=== PATIENT | male | born 1965 | race Caucasian/White ===

== ENCOUNTER 2019-11-23 12:15 | Observation (INO) | payer OTHER, SELFPAY ==
[2019-11-23] VITALS (12 sets, daily range): BP systolic 169–222; BP diastolic 76–118; PULSE 68–103; RESP 15–18; TEMP 36.1–36.9; O2SAT 96–100
--- NOTE | ~2019-11-23 | XR_ITS ---
EXAMINATION: XR chest 2V 11/23/2019 12:45 INDICATION: Chest tightness. Hypertension. PROCEDURE: 2 view chest COMPARISON: No prior studies for comparison. FINDINGS: The lungs are clear. The cardiomediastinal silhouette is within normal limits. There are no pleural effusions. There is no pneumothorax suspected. IMPRESSION: 1: NO ACUTE CARDIOPULMONARY DISEASE. Reviewed, dictated and finalized at location A.
--- NOTE | ~2019-11-23 | CT_ITS ---
EXAMINATION: CTA chest PE protocol DATE: 11/23/2019 19:39 INDICATION: Shortness of breath, hypertension TECHNIQUE: Computed tomography angiography (CTA) of the chest was performed with 100 mL Omnipaque-350 intravenous contrast timed to evaluate the pulmonary arteries. Coronal maximum intensity projection 3D-reconstructions were created by the technologist. The dose-length product (DLP) was 1016.34 mGy-cm . Automated exposure control and iterative reconstruction technique were employed. COMPARISON: 11/08/2012 FINDINGS: The pulmonary arteries are well-opacified. No pulmonary embolism is identified. The lungs a re free of acute opacities. There is no pleural effusion or pneumothorax. No pathologically enlarged thoracic lymph nodes are identified. The heart size is normal. There are bridging osteophytes at mult iple levels in the spine, consistent with diffuse idiopathic skeletal hyperostosis (DISH). There is a 3 cm cyst of the left kidney. IMPRESSION: 1. No pulmonary embolism or acute cardiopulmonary abnormality. Reviewed, dictated and finalized at location A.
--- NOTE | ~2019-11-23 | US_ITS ---
EXAMINATION: US venous doppler [facility] DATE: 11/23/2019 14:56 INDICATION: Lower limb swelling TECHNIQUE: [place] scale images without and with compression and Doppler images of the bilateral lower e xtremity veins were obtained. COMPARISON: None. FINDINGS: The right common femoral vein, profunda femoral vein, femoral vein, popliteal vein, peroneal trunk, p osterior tibial veins, and greater saphenous vein are patent. There is thrombosis of the peroneal trunk and posterior tibial veins. The left common femoral vein, p rofunda femoral vein, femoral vein, popliteal vein, and greater saphenous vein are patent. IMPRESSION: 1. Thrombosis of the left peroneal and posterior tibial veins. These findings were discussed with Dr. Chauncey Lee MD in the Emergency Department at 1515 hours on 11/23/2019. Reviewed, dictated and finalized at location A. IMPRESSION: 1. Thrombosis of the left peroneal and posterior tibial veins. These findings w ere discussed with Dr. Chauncey Lee MD in the Emergency Department at 151 5 hours on 11/23/2019.
--- NOTE | 2019-11-23 12:16 | ECG_ITS ---
Measurements Intervals [place] Rate: 102 P: 47 [place]: 153 QRS: 12 QRSD: 85 T: 18 QT: 328 QTc: 429 Interpretive Statements SINUS TACHYCARDIA BORDERLINE ST-T WAVE ABNORMALITY- INFERIOR LEADS BASELINE WANDER- II, III, V2-V6 BORDERLINE ECG Electronically Signed On 11-23-2019 15:29:45 CDT by Bulmaro Fuentes D.O.
[2019-11-23] MEDS: ASPIRIN 81 MG CHEWABLE TABLET 324 MG PO (12:26)
--- NOTE | 2019-11-23 12:50 | ED.CHESTPAIN ---
HPI - Chest Pain General Chief Complaint: Chest Pain Stated Complaint: high blood pressure Time Seen by Provider: 11/23/19 12:39 Source: patient Mode of arrival: ambulatory Limitations: no limitations History of Present Illness HPI narrative: A 53 y/o male presents to the ED with c/o midsternal CP. Pt states that the CP started this afternoon and has been constant since. He has a PMHx of HTN and hyperlipidemia but has not taken his medication for the past 3 years. Today he notes that his blood pressure was 211/101, so he decided to come to the ED. The midsternal CP is aggravated when he eats. Pt reports SOB on exertion and BLE edema that is worse on the right. He does not currently have a PCP. Pt has no other complaints at this time. MD complaint: chest pain (midsternal) Pertinent past history: other (HTN, hyperlipidemia) Onset (ago): hour(s) (today) Timing of current episode: constant Pain location: other (midsternal) Exacerbating factors: eating Context: non compliance with medication Associated symptoms: dyspnea (on exertion) and other (BLE edema that is worse on the right) Related Data Home Medications Medication Instructions Recorded Confirmed No Home Medications 11/23/19 11/23/19 Allergies Allergy/AdvReac Type Severity Reaction Status Date / Time No Known Allergies Allergy Verified 11/23/19 12:24 Review of Systems Review of Systems: All systems reviewed & are unremarkable except as noted in HPI and below Cardiovascular: Cardiovascular: Reports chest pain (midsternal) and Reports leg edema (BLE that is worse on right) Respiratory: Respiratory: Reports dyspnea on exertion PMFSH Past Medical History Medical History (Updated 11/23/19 @ 16:31 by Chauncey Lee MD) History of blood transfusion HTN (hypertension) Hyperlipidemia Surgical History Surgical History (Updated 11/23/19 @ 12:53 by Linn Gutierrez) History of hernia repair History of tonsillectomy Family History Family History Father Acute myocardial infarction Mother Family history of malignant neoplasm of ovary Family history of malignant neoplasm Social History Social History Smoking status: Never smoker Alcohol intake: current Drinks per week: 6 Substance use: never Gender identity (if verbalized by the patient): Male Spiritual care concerns: No Agree to blood products: Yes Exam Narrative: Exam Narrative: GENERAL: Well-appearing, obese, and in no acute distress. HEAD: Normocephalic, atraumatic. ENT: Mucous membranes moist. Normal posterior oropharynx without tonsillar hypertrophy or exudate. CHEST: Clear to auscultation. No respiratory distress. HEART: Regular rate and rhythm. Normal peripheral pulses. ABDOMEN: Soft, nontender, nondistended. EXTREMITIES: Normal range of motion. 2+ edema R>L. SKIN: Warm, dry, no rash. NEURO: Alert and oriented x3. Clear speech. PSYCH: Normal mood and affect. Course Course Emergency Course: Admit to hospitalist service. No lovenox, distal DVT. Hydralazine for BP at this time. Vital Signs Vital signs: Vital Signs Temperature 98 F 11/23/19 12:20 Pulse Rate 99 11/23/19 12:20 Respiratory Rate 17 11/23/19 12:20 Pulse Oximetry 100 11/23/19 12:20 Temperature 98.4 F 11/23/19 15:30 Pulse Rate 103 H 11/23/19 15:30 Respiratory Rate 18 11/23/19 15:30 Blood Pressure 200/80 H 11/23/19 15:30 Pulse Oximetry 99 11/23/19 16:00 MDM - Chest Pain Lab Data Result diagrams: 11/23/19 12:35 11/23/19 12:35 Labs: Lab Results 11/23/19 11/23/19 11/23/19 Range/Units 12:35 12:35 12:35 WBC 6.6 (4.5-10.0) K/mm3 RBC 5.21 (4.6-6.20) M/mm3 Hgb 15.0 (14.0-18.0) g/dL Hct 44.3 (42.0-52.0) % MCV 85.0 (80-100) fl MCH 28.8 (26-34) pg MCHC 33.9 (32-36) g/dl RDW 12.8 (11.5-14.5) % Plt Count 181
[2019-11-23 12:51] LABS: Basophils Percent Auto 0.6 % (0.2-1.2); Eosinophils Absolute Auto 0.1 K/mm3 (0-0.3); Hematocrit 44.3 % (42.0-52.0); Immature Granulocyte Absolute 0.02 K/mm3 (0.00-0.031); Immature Granulocyte Percent A 0.3 % (0-0.5); Lymphocytes Absolute Auto 1.56 K/mm3 (0.9-3.2); Lymphocytes Percent Auto 23.7 % (18.3-44.2); Mean Corpuscular HGB Conc 33.9 g/dl (32-36); Mean Corpuscular Hemoglobin 28.8 pg (26-34); Mean Platelet Volume 10.4 fl (7.4-10.4); Monocytes Absolute Auto 0.6 K/mm3 (0.1-0.6); Monocytes Percent Auto 8.4 % (2.6-8.5); Neutrophils Absolute Auto 4.3 K/mm3 (1.3-6.7); Platelet Count Result 181 k/mm3 (150-375); Red Blood Count 5.21 M/mm3 (4.6-6.20); Red Cell Distribution Width 12.8 % (11.5-14.5); White Blood Count 6.6 K/mm3 (4.5-10.0)
[2019-11-23 13:02] LABS: INR 1.1; Prothrombin Time 14.1 Seconds (11.1-14.7)
[2019-11-23 13:03] LABS: Blood Urea Nitrogen 10 mg/dL (9-20); Calcium 8.6 mg/dL (8.4-10.2); Carbon Dioxide 28 mmol/L (22-30); Chloride 103 mmol/L (98-107); Estimated CRCL calculation 103 ml/min; Estimated Glomerular Filt Rate > 60; Glucose 112 mg/dL (75-110); Potassium 3.3 mmol/L (3.4-5.0); Sodium 138 mmol/L (137-145)
[2019-11-23 13:14] LABS: Troponin I < 0.012 ng/mL (0.000-0.034)
[2019-11-23] MEDS: hydrALAZINE HCL 20 MG/ML VIAL 10 MG IV PUSH (13:42)
--- NOTE | 2019-11-23 15:35 | ADMGEN ---
This patient, Anibal Reynolds, was admitted to IMU Room 214-01. Patient/family oriented to hospital policies and general routines including ID bracelet, bed and alarms, visiting hours, pain management, procedures, bathroom and other care routines, personal items, smoking policy, room service/diet, and visiting hours. Valuables list has been completed. Information on how to activate the Rapid Response Team has been discussed. Patient/Family are encouraged to report perceived risks to care and to ask questions if they do not understand what they are told or what they should do.
--- NOTE | 2019-11-23 16:30 | PM.IMHP ---
H&P: HPI History of Present Illness Chief complaint: Chest pain and elevated blood pressure. Narrative: Anibal Reynolds is a pleasant 53-year-old male with hypertension and hyperlipidemia who presented to the emergency department earlier this afternoon for evaluation of chest pain and elevated blood pressure. He has been off of his medications for nearly 3 years reasons unclear to me, but it sounds like he stopped taking his medications as he was having a difficult time making appointment with his doctor on a couple of occasions. Prior to that, he was pretty diligent about checking his blood pressures at home, but that has dropped off as well. He is aware when his blood pressures are high, typically experiencing flushed face, occasional headache, and ?pounding heart.? Not long prior to coming to the emergency department, he had walked up and down the basement stairs several times while doing chores, and he developed pretty significant shortness of breath as well as midsternal chest tightness and mild lightheadedness. He decided to get out his blood pressure cuff, and at that time reports a reading of 221/111 which led him to come to the emergency department. With further questioning, over the last couple of months he has noticed increasing dyspnea on lesser and lesser exertion, occasionally accompanied by the chest tightness and lightheadedness. Interestingly, in addition to exertion, the symptoms seem to occur approximately 15 minutes after eating a meal. He adamantly denies having indigestion, heartburn, abdominal, and epigastric discomfort. He is not had dysphagia or odynophagia. At the time my evaluation, he is complaining of 3/10 midsternal chest tightness but has no other symptoms. He has chronic lower extremity edema, which is unchanged, and he denies history of recent travel and venous thromboembolism. He has not had pleuritic chest pain and denies fluttering or sensation of irregular heartbeat. No headache, vertigo, diplopia, focal weakness, or paresthesias. Review of Systems Review of Systems: Narrative: Twelve systems were reviewed with pertinent positives and negatives as per HPI. He had flu symptoms at the end of October which have resolved. He has no history of coronary disease and has never had a stress test. He has never had chest discomfort like this before. He denies NSAID use. No nausea or vomiting. No hematemesis, melena, or hematochezia. No history of sleep apnea however family members have told him that he snores very loudly. He denies orthopnea and PND. Denies daytime somnolence. No recent travel. No sick contacts. No hematuria. He has had intermittent right hip pain over the years, which he presumes is due to arthritis. Occasionally he will have some tingling in that leg, which he has always attributed to his hip. He denies associated weakness, and says it happens rarely and passes quickly. Except as documented, all other systems were reviewed and are negative. [facility] Past Medical History Medical History (Updated 11/23/19 @ 20:16 by Martha Hassan PA-C) History of blood transfusion As an infant. Hyperlipidemia Hypertension Surgical History Surgical History (Updated 11/23/19 @ 20:11 by Martha Hassan PA-C) History of hernia repair Ventral hernia repair. History of tonsillectomy Family History Family History Father Acute myocardial infarction Mother Family history of malignant neoplasm of ovary Family history of malignant neoplasm Social History Social History (Updated 11/23/19 @ 20:12 by Martha Hassan PA-C) Social History: The patient lives in [place]. He and his are currently . He designates his , Justin, as his surrogate decision maker and he wishes to be a full code. He works as a digital account director. He is a lifelong nonsmoker. He consumes maybe 6 alcoholic beverages a week, at the most. No drug us
[2019-11-23] MEDS: ACETAMINOPHEN 325 MG TABLET 650 MG PO (18:16)
[2019-11-23] MEDS: NITROGLYCERIN OINTMENT 1 INCH DOSE 0.5 INCH TRANSDERM ×2 (18:18→23:19)
[2019-11-23] MEDS: POTASSIUM CHLORIDE 20 MEQ TABLET PO (19:44)
[2019-11-23] MEDS: AMLODIPINE BESYLATE 5 MG TABLET PO (19:44)
[2019-11-23 19:47] LABS: Troponin I 0.023 ng/mL (0.000-0.034)
[2019-11-23] MEDS: APIXABAN 5 MG TABLET 10 MG PO (22:27)
[2019-11-24] VITALS (7 sets, daily range): BP systolic 145–189; BP diastolic 70–81; PULSE 64–80; RESP 16–20; TEMP 36.4–36.7; O2SAT 98–100
[2019-11-24 05:26] LABS: Alanine Aminotransferase 60 U/L (4-50); Albumin Level 3.9 g/dL (3.5-5.1); Alkaline Phosphatase 89 U/L (38-126); Aspartate Amino Transferase 30 U/L (17-59); Bilirubin,Total 1.2 mg/dL (0.2-1.3); Blood Urea Nitrogen 10 mg/dL (9-20); Calcium 8.6 mg/dL (8.4-10.2); Carbon Dioxide 31 mmol/L (22-30); Chloride 102 mmol/L (98-107); Cholesterol 151 mg/dL (0-200); Estimated CRCL calculation 125 ml/min; Estimated Glomerular Filt Rate > 60; Glucose 106 mg/dL (75-110); HDL Direct 38 mg/dL; Magnesium 2.3 mg/dL (1.6-2.3); Phosphorus 3.2 mg/dL (2.5-4.5); Potassium 3.6 mmol/L (3.4-5.0); Sodium 138 mmol/L (137-145); Triglycerides 119 mg/dL (<150)
[2019-11-24 05:37] LABS: LDL Cholesterol Direct 89 mg/dL
[2019-11-24] MEDS: NITROGLYCERIN OINTMENT 1 INCH DOSE 0.5 INCH TRANSDERM (05:53)
[2019-11-24] MEDS: APIXABAN 5 MG TABLET 10 MG PO (09:03)
[2019-11-24] MEDS: CLONIDINE HCL 0.1 MG TABLET PO (09:04)
[2019-11-24] MEDS: CHLORTHALIDONE 25 MG TABLET PO (09:04)
[2019-11-24] MEDS: POTASSIUM CHLORIDE 10 MEQ TABLET.ER PO (09:04)
[2019-11-24] MEDS: LOSARTAN POTASSIUM 50 MG TABLET PO (09:04)
[2019-11-24] MEDS: AMLODIPINE BESYLATE 5 MG TABLET 10 MG PO (09:04)
--- NOTE | 2019-11-24 09:37 | PM.DS ---
DS: Diagnosis Admitting Diagnosis Admitting Diagnosis: Chest pain, unspecified DS: Summary Hospital Course Reason for hospitalization: chest pressure and dyspnea Hospital Course: 53-year-old gentleman known hypertension has not been taking his medication for several months. Since September he has noticed intermittent dyspnea on exertion. Some headaches. Has not monitor his blood pressure. 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 He developed some chest pressure little lightheadedness and shortness of breath. This was little more severe than what he experienced before so he came the emergency department. He checked his blood pressure and it was 211 systolic at home. He came to emergency department where his blood pressure was 221/118. He received hydralazine topical nitrates and was started on chlorthalidone and amlodipine. Losartan was added in the a.m.. Blood pressure declined gradually. He tolerated the medication well. Tolerated his diet. He did not notice any chest pressure since initiation of medication. Troponins, chest x-ray, EKG, and chest CTA were all unremarkable. He normally has chest pressure after eating. This had not recurred. He denied any indigestion or heartburn or bowel or bladder changes. No abnormal bleeding. He does have chronic swelling in his legs mostly it into the day. Venous Doppler did show a DVT in the left peroneal vein. Because of his morbid obesity and relatively sedentary lifestyle and high risk for progression he was started on apixaban 10 mg twice daily for 7 days then 5 mg twice daily for least 3 months. He does not have a regular physician at this point. His former doctor is out of network. He has a list of doctors to call tomorrow to make a follow-up appointment. He will not do anything that involves straining or heavy lifting or rushing until he sees his new primary physician. He understands that he must follow a low-salt diet and moderate his food intake and work on losing weight. He will not begin an exercise program until he follows up with her primary physician. He will begin wearing support hose while up and about during the day. He will discuss a follow-up venous Doppler and treadmill stress test with his new primary physician. Time Spent with Patient Time attestation: Total time spent providing and/or coordinating discharge services: 38 min Exam Narrative: Exam Narrative: HEENT: EOMI, PERRL, pharyngeal mucosa pink and intact NECK: No JVD, adenopathy, or thyromegaly CHEST: Clear to auscultation. Normal effort. HEART: NL S1/S2, regular, no murmur ABDOMEN: BS+, soft, nontender, no mass, no bruits EXTREMITIES: No cyanosis, trace ankle edema with bilateral venous stasis changes worse on the right than left. NEUROLOGIC: CN intact and symmetric to inspection. MUSCULOSKELETAL: Tone and strength symmetric. PSYCH: Alert. Oriented to person, place, and time. DS: Data Data Completed and Pending Labs on day of discharge: Labs from last 24 hours 11/24/19 11/24/19 11/24/19 04:27 04:27 04:27 WBC RBC Hgb Hct MCV MCH MCHC RDW Plt Count MPV Immature Gran % (Auto) Neut % (Auto) Lymph % (Auto) [place] % (Auto) Eos % (Auto) Baso % (Auto) Lymph # (Auto) [place] # (Auto) Eos # (Auto) Baso # (Auto) Abs Immat Gran (auto) Absolute Neuts (auto) Absolute Nucleated RBC Nucleated RBC % PT INR APTT Sodium 138 Potassium 3.6 Chloride 102 Carbon Dioxide 31 H BUN 10 Creatinine 0.80 Estim Creat Clear Calc 125 Estimated GFR > 60 Glucose 106 Calcium 8.6 Phosphorus 3.2 Magnesium 2.3 Total Bilirubin 1.2 AST 30 ALT 60 H Alkaline Phosphatase 89 Troponin I Total Protein 7.0 Albumin 3.9 Triglycerides
[2019-11-24 11:10] LABS: Total Triiodothyronine (T3) 1.22 NG/ML (0.97-1.69)
--- NOTE | 2019-12-12 07:01 | PC.NURSE ---
Received call from patient on 12/11/2019. Patient could not get into see new PCP until 12/30. He will be out of meds prior to visit. 21 days worth of Norvasc 10 mg po daily and Losartan 50-12.5mg po daily called into [facility].
== END 2019-11-24 13:42 | disposition home or self-care (01) ==
LOC: ANHED 14:09 → ANHIMU 15:00
PROVIDERS: Physician Assistant; Admitting Provider Hospitalist; Emergency Provider Emergency Medicine; Visit Provider Internal Medicine
DX: R07.89 Other chest pain (principal); R06.02 Shortness of breath; I82.442 Acute embolism and thrombosis of left tibial vein; I10 Essential (primary) hypertension; E78.5 Hyperlipidemia, unspecified; E87.6 Hypokalemia; E66.01 Morbid (severe) obesity due to excess calories; Z68.41 Body mass index [BMI] 40.0-44.9, adult; Z28.21 Immunization not carried out because of patient refusal
CPT/HCPCS: 36415; 71046; 71275; 80048; 80053; 80061; 83735; 84100; 84439; 84443; 84480; 84484; 85025; 85610; 85730; 93005; 93970; 94762; 96374; 99285; A9270; G0378; J0360; Q9967